=== PATIENT | male | born 1985 | race Caucasian/White ===

== ENCOUNTER 2019-05-18 11:19 | Emergency (ER) | payer BC ==
[~2019-05-18] VITALS: Ht 175.3 cm; Wt 92.1 kg
[~2019-05-18 11:19] MED LIST: IBUP-1542 PO; TRAM50TA2 PO
[2019-05-18 11:31] VITALS: BP 122/80; PULSE 71; RESP 18; Ht 175.3 cm; Wt 92.1 kg
== END 2019-05-18 13:51 | disposition home or self-care (01) ==
LOC: FTE 11:19
DX: M25.561 Pain in right knee (principal)
CPT/HCPCS: 99283